=== PATIENT | male | born 1975 | race Caucasian/White ===

== ENCOUNTER 2017-12-10 19:50 | Emergency (ER) | payer SELFPAY ==
[2017-12-10 20:03] VITALS: BP 124/73
[2017-12-10] MEDS ORDERED: predniSONE 20 MG TABLET PO STA (21:59)
[2017-12-10] MEDS ORDERED: COLCHICINE 0.6 MG TABLET PO STA (21:59)
[2017-12-10] MEDS ORDERED: IBUPROFEN 800 MG TABLET PO STA (22:00)
--- NOTE | 2017-12-10 22:02 | ED Physician Documentation ---
History of Present Illness - Stated complaint Stated Complaint: R LEG PX - Chief complaint Chief Complaint: Ext Problem - History obtained from History obtained from: Patient - History of Present Illness Timing: How many weeks ago (1) Pain level max: 7 Pain level now: 7 Improved by: rest Worsened by: walking - Additonal information Additional information: Patient is a 41-year-old male with a history of gout who presents with redness and swelling to the posterior aspect of the right heel. Has not taken anything for this. Review of Systems Constitutional: denies: Fever, Chills Nose: denies: Rhinorrhea / runny nose, Congestion Throat: denies: Sore throat Skin: denies: Rash Musculoskeletal: denies: Neck pain, Back pain Neurologic: denies: Headache PD PAST MEDICAL HISTORY - Past Medical History Past Medical History: No - Past Surgical History Past Surgical History: Yes - Present Medications Home Medications: Ambulatory Orders Medication Instructions Recorded Confirmed Meloxicam [Mobic] 15 mg PO DAILY PRN #20 tablet 12/10/17 predniSONE [Prednisone] 40 mg PO DAILY #10 tablet 12/10/17 - Allergies Allergies/Adverse Reactions: Allergies Allergy/AdvReac Type Severity Reaction Status Date / Time No Known Drug Allergies Allergy Verified 12/10/17 20:03 - Social History Does the pt smoke?: No Smoking Status: Never smoker Does the pt drink ETOH?: Yes ETOH Use: Beer Does the pt have substance abuse?: Yes Substance Use and Type: Marijuana - Immunizations Immunizations are current?: Yes - POLST Patient has POLST: No PD ED PE NORMAL - Vitals Vital signs reviewed: Yes - General General: Alert and oriented X 3, No acute distress - HEENT HEENT: Moist mucous membranes - Derm Derm: Warm and dry - Extremities Extremities: Other (R heel - 1 x 1 cm erythematous, firm area to the posterior aspect of the heel, near the Achilles tendon insertion. Achilles tendon is intact. Bass's test is normal. No bony tenderness. 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 Bedside ultrasound confirms no abscess. We will treat his gout and have him follow-up with his doctor for further care. Patient counseled regarding signs and symptoms for which I believe and urgent re-evaluation would be necessary. Patient with good understanding of and agreement to plan and is comfortable going home at this time This document was made in part using voice recognition software. While efforts are made to proofread this document, sound alike and grammatical errors may occur. - Sepsis Event Vital Signs: Vital Signs - 24 hr 12/10/17 20:01 Temperature 36.5 C Heart Rate 88 Respiratory 18 Rate Blood Pressure 124/73 O2 Saturation 97 Oxygen O2 Source Room air Departure - Departure Disposition: Home, Self Care Clinical Impression: Gout Qualifiers: Gout site: foot Gout etiology: unspecified cause Chronicity: acute Laterality: right Qualified Code(s): M10.9 - Gout, unspecified Condition: Good Instructions: ED Diet Gout Follow-Up: your,doctor in 1 week [Other] Prescriptions: Meloxicam [Mobic] 15 mg PO DAILY PRN #20 tablet PRN Reason: pain predniSONE [Prednisone] 40 mg PO DAILY #10 tablet Comments: Return if you worsen. This should improve rapidly over the next 2-3 days. Drink plenty of water. Follow-up with your doctor for further testing. They may want to place you on a medication such as allopurinol to help reduce your frequency of future flares. Forms: Activity restrictions Discharge Date/Time: 12/10/17 22:12
[2017-12-10] MEDS ORDERED: COLCHICINE 0.6 MG TABLET PO ONE (22:21)
== END 2017-12-10 22:12 | disposition home or self-care (01) ==
LOC: ED 19:50
DX: M10.9 Gout, unspecified (principal)
CPT/HCPCS: 99283; A9270; J7512